=== PATIENT | female | born 1995 | race American Indian/Alaskan Native ===

== ENCOUNTER 2017-02-24 18:16 | Emergency (ER) | payer OTHER ==
[2017-02-24 19:09] LABS: Basophils % (Auto) 0.5 % (0.0-1.8); Eosinophils % (Auto) 1.2 % (0.0-4.3); Hematocrit 37.8 % (30.3-42.9); Hemoglobin 12.3 gm/dl (10.1-14.3); Mean Corpuscular HGB Conc 33 % (30-34); Mean Corpuscular Hemoglobin 27 pg (28-32); Mean Corpuscular Volume 84 fl (79-97); Platelet Count 246 K/mm3 (140-440); Red Blood Count 4.53 M/mm3 (3.65-5.03); Red Cell Distribution Width 13.2 % (13.2-15.2); White Blood Count 11.9 K/mm3 (4.5-11.0)
[2017-02-24 19:52] LABS: Anion Gap 18 mmol/L; BUN/Creatinine Ratio 20; Blood Urea Nitrogen 12 mg/dL (7-17); Calcium 9.4 mg/dL (8.4-10.2); Carbon Dioxide 25 mmol/L (22-30); Chloride 97.3 mmol/L (98-107); Glucose 88 mg/dL (65-100); Potassium 4.3 mmol/L (3.6-5.0); Sodium 136 mmol/L (137-145)
[2017-02-24 22:02] LABS: Bilirubin,Urine NEG (Negative); Blood,Urine NEG (Negative); Ketones,Urine 20 mg/dL (Negative); Leukocyte Esterase,Urine NEG (Negative); Mucus,Urine 3+ /HPF; Nitrite,Urine NEG (Negative); Protein,Urine <15 mg/dL mg/dL (Negative)
[2017-02-24] MEDS: ALUM-MAG HYDROX-SIMETH 200-200-20MG/5ML PO ONE (22:51)
[2017-02-24] MEDS: PEPCID PO ONE (22:51)
[2017-02-24] MEDS: ZOFRAN ODT PO ONE (22:51)
[2017-02-24 23:03] LABS: Alanine Aminotransferase 19 units/L (7-56); Albumin 4.3 g/dL (3.9-5); Albumin/Globulin Ratio 1.2 %; Alkaline Phosphatase 59 units/L (35-129); Amylase 102 units/L (27-131); Lipase 31 units/L (13-60); Total Protein 7.8 g/dL (6.3-8.2)
[2017-02-24 23:11] LABS: Bilirubin,Direct < 0.2 mg/dL (0-0.2); Bilirubin,Indirect 0.1 mg/dL
[2017-02-25] MEDS: PEPCID IV ONE (00:50)
[2017-02-25] MEDS: NACL 0.9% 1000 ML 1,000 ML IV ONE (00:50)
--- NOTE | 2017-02-25 00:54 | Ultrasound Report ---
FINAL REPORT EXAM: US OB < = 14 WEEKS FETUS HISTORY: pain COMPARISON: None available. TECHNIQUE: Several real-time grayscale and color Doppler images were obtained. Transabdominal and transvaginal exam. FINDINGS: Uterus measures 10.0 x 6.3 x 8.2 centimeters. The right ovary measures 3.0 x 2.2 x 2.6 centimeters. Left ovary measures 2.4 x 2.1 x 2.2 centimeters. Uterus is retroverted. Single live IUP. Estimated gestational age 6 weeks 1 day. Estimated delivery date October 20, 2017. heart rate 120 beats per minute. Yolk sac is present questionable small subchorionic hemorrhage measuring 6 x 4 millimeters. No adnexal masses are demonstrated. IMPRESSION: Single live IUP. Estimated gestational age 6 weeks 1 day. Estimated delivery date October 20, 2017. Possible tiny subchorionic hemorrhage.
--- NOTE | 2017-02-25 00:54 | Ultrasound Report ---
FINAL REPORT EXAM: US OB TRANSVAGINAL HISTORY: pain COMPARISON: None available. TECHNIQUE: Several real-time grayscale and color Doppler images were obtained. Transabdominal and transvaginal exam. FINDINGS: Uterus measures 10.0 x 6.3 x 8.2 centimeters. The right ovary measures 3.0 x 2.2 x 2.6 centimeters. Left ovary measures 2.4 x 2.1 x 2.2 centimeters. Uterus is retroverted. Single live IUP. Estimated gestational age 6 weeks 1 day. Estimated delivery date October 20, 2017. heart rate 120 beats per minute. Yolk sac is present questionable small subchorionic hemorrhage measuring 6 x 4 millimeters. No adnexal masses are demonstrated. IMPRESSION: Single live IUP. Estimated gestational age 6 weeks 1 day. Estimated delivery date October 20, 2017. Possible tiny subchorionic hemorrhage.
[2017-02-25 03:08] VITALS: BP 101/54
--- NOTE | 2017-02-25 03:48 | Emergency Department Report ---
ED HPI - General Chief complaint: Nausea/Vomiting/Diarrhea Stated complaint: N/V AND DIZZINESS/HEADACHE Time Seen by Provider: 02/24/17 22:11 Source: patient Mode of arrival: Ambulatory Limitations: No Limitations - History of Present Illness Initial comments: 21-year-old female past medical history none presents with complaint of pelvic cramps and nausea for 1 week. Patient states she had a few episodes of vomiting yesterday. Denies increased urinary frequency dysuria upper abdominal pain chest pain palpitations shortness of breath. States she had some headache after vomiting earlier today. Headache has since resolved but still feels nauseous. Vomited approximately 4 times. Patient's LMP was in December but is unsure if she may be . Requesting test. Patient denies any vaginal discharge and or vaginal bleeding currently. Onset/Timin -: week(s) Improves with: none Worsens with: none Associated symptoms: nausea/vomiting Vaginal bleeding: none :: Yes Number of weeks : 6 OB History - Current : no complications OB History - Previous Pregnancies: no complications Last menstrual period: 01/10/16 Pre- care: none - Related Data : 1 Para: 0 Previous Rx's Medication Instructions Recorded Last Taken Type Acetaminophen [Acetaminophen TAB] 500 mg PO Q6HR PRN #30 tablet 02/25/17 Unknown Rx Doxylamine Succinate/Vit B6 1 each PO QDAY PRN #30 tablet. 02/25/17 Unknown Rx [Kym Quiles 10-10 mg Tablet] Judie Root [Judie] 250 mg PO QDAY PRN #30 capsule 02/25/17 Unknown Rx Ondansetron [Zofran Odt] 4 mg PO Q8H PRN #12 tab.rapdis 02/25/17 Unknown Rx Pnv No.95/Ferrous Fum/Folic AC 1 each PO QDAY #1 bottle 02/25/17 Unknown Rx [ Formula Tablet] Allergies Allergy/AdvReac Type Severity Reaction Status Date / Time No Known Allergies Allergy Verified 02/24/17 18:43 ED Review of Systems ROS: Stated complaint: N/V AND DIZZINESS/HEADACHE Other details as noted in HPI Constitutional: denies: chills, fever Eyes: denies: eye pain, eye discharge, vision change ENT: denies: ear pain, throat pain Respiratory: denies: cough, shortness of breath, wheezing Cardiovascular: denies: chest pain, palpitations Endocrine: no symptoms reported Gastrointestinal: nausea. denies: abdominal pain, diarrhea Genitourinary: denies: urgency, dysuria, discharge Musculoskeletal: denies: back pain, joint swelling, arthralgia Skin: denies: rash, lesions Neurological: denies: headache, weakness, paresthesias Psychiatric: denies: anxiety, depression Hematological/Lymphatic: denies: easy bleeding, easy bruising ED Past Medical Hx - Past Medical History Previous Medical History?: No - Surgical History Past Surgical History?: No - Social History Smoking Status: Never Smoker Substance Use Type: None - Medications Home Medications: Home Medications Medication Instructions Recorded Confirmed Last Taken Type Acetaminophen [Acetaminophen TAB] 500 mg PO Q6HR PRN #30 tablet 02/25/17 Unknown Rx Doxylamine Succinate/Vit B6 1 each PO QDAY PRN #30 tablet.dr 02/25/17 Unknown Rx [Diclegis Dr 10-10 mg Tablet] Judie Root [Judie] 250 mg PO QDAY PRN #30 capsule 02/25/17 Unknown Rx Ondansetron [Zofran Odt] 4 mg PO Q8H PRN #12 tab.rapdis 02/25/17 Unknown Rx Pnv No.95/Ferrous Fum/Folic AC 1 each PO QDAY #1 bottle 02/25/17 Unknown Rx [ Formula Tablet] ED Physical Exam - General Limitations: No Limitations General appearance: alert, in no apparent distress - Head Head exam: Present: atraumatic, normocephalic - Eye Eye exam: Present: normal appearance, PERRL, EOMI - ENT ENT exam: Present: mucous membranes moist - Neck Neck exam: Present: normal inspection - Respiratory Respiratory exam: Present: normal lung sounds bilaterally. Absent: respiratory distress - Cardiovascular Cardiovascular Exam: Present: regular rate, normal rhythm. Absent: systolic murmur, diastolic murmur, rubs, gallop - GI/Abdominal GI/Abdominal exam: Present: soft, normal bowel sounds - Extremities Exam Extremities exam: Present: normal inspection - Back Exam Back exam: Present: normal inspection - Neurological Exam Neurological exam: Present: alert, oriented X3, CN II-XII intact, normal gait - Psychiatric Psychiatric exam: Present: normal affect, normal mood - Skin Skin exam: Present: warm, dry, intact, normal color. Absent: rash ED Course Vital Signs 11/26/17 11/27/17 18:40 03:07 Temperature 98.2 F 98.6 F Pulse Rate 100 H 76 Respiratory 16 16 Rate Blood Pressure 112/55 Blood Pressure 101/54 [Right] O2 Sat by Pulse 100 98 Oximetry ED Medical Decision Making - Lab Data Result diagrams: 02/24/17 18:48 02/24/17 18:48 - Medical Decision Making A/P: , nausea and vomiting 1-Rh+, ultrasound shows IUP, UA unremarkable 2-patient has no vaginal discharge and no reports of vaginal bleeding 3-Tylenol when necessary for crampy lower abdominal pain 4- emphasized the importance of follow-up with [facility] to the patient. vitamins, Judie supplment when necessary for nausea, Zofran when necessary for nausea. Labs unremarkable otherwise. [email or web address]_[email or web address] search=[email or web address]=[email or web address] Critical care attestation.: If time is entered above; I have spent that time in minutes in the direct care of this critically ill patient, excluding procedure time. ED Disposition Clinical Impression: Morning sickness Qualifiers: Weeks of gestation: less than 8 weeks Qualified Code(s): Z3A.01 - Less than 8 weeks gestation of Disposition: DC-01 TO HOME OR SELFCARE Is pt being admited?: No Does the pt Need Aspirin: No Condition: Stable Instructions: Morning Sickness (ED), (ED) Prescriptions: Acetaminophen [Acetaminophen TAB] 500 mg PO Q6HR PRN #30 tablet PRN Reason: Pain Doxylamine Succinate/Vit B6 [Kym Quiles 10-10 mg Tablet] 1 each PO QDAY PRN # 30 tablet.dr PRN Reason: Nausea Judie Root [Judie] 250 mg PO QDAY PRN #30 capsule PRN Reason: Nausea Ondansetron [Zofran Odt] 4 mg PO Q8H PRN #12 tab.rapdis PRN Reason: Nausea Pnv No.95/Ferrous Fum/Folic AC [ Formula Tablet] 1 each PO QDAY #1 bottle Referrals: [facility] [Provider Group] - 3-5 Days [facility] [Provider Group] - 3-5 Days [facility] [Provider Group] - 3-5 Days Time of Disposition: 03:45
== END 2017-02-25 04:00 | disposition home or self-care (01) ==
LOC: ED 18:16
DX: O26.891 Other specified pregnancy related conditions, first trimester (principal); R11.0 Nausea; R10.2 Pelvic and perineal pain; Z3A.01 Less than 8 weeks gestation of pregnancy
CPT/HCPCS: 36415; 76801; 76817; 84702; 86850; 86900; 86901; 96361; 96374; 99284; J7030; 80048; 80074; 81001; 81025; 82150; 83690; 85025; Q0162

== ENCOUNTER 2017-04-08 10:27 | Emergency (ER) | payer OTHER ==
[2017-04-08 11:51] VITALS: BP 102/59
[2017-04-08 12:30] LABS: Basophils % (Auto) 0.2 % (0.0-1.8); Eosinophils # (Auto) 0.1 K/mm3 (0.0-0.4); Eosinophils % (Auto) 0.8 % (0.0-4.3); Hemoglobin 12.5 gm/dl (10.1-14.3); Lymphocytes % (Auto) 26.1 % (13.4-35.0); Mean Corpuscular HGB Conc 33 % (30-34); Mean Corpuscular Hemoglobin 28 pg (28-32); Mean Corpuscular Volume 85 fl (79-97); Monocytes # (Auto) 0.9 K/mm3 (0.0-0.8); Platelet Count 226 K/mm3 (140-440); Red Blood Count 4.49 M/mm3 (3.65-5.03); Red Cell Distribution Width 13.3 % (13.2-15.2)
[2017-04-08 12:40] LABS: Alanine Aminotransferase 24 units/L (7-56); Albumin 4.1 g/dL (3.9-5); BUN/Creatinine Ratio 20; Blood Urea Nitrogen 8 mg/dL (7-17); Calcium 9.6 mg/dL (8.4-10.2); Hemolysis Index 2
[2017-04-08 16:25] LABS: Bilirubin,Urine NEG (Negative); Blood,Urine NEG (Negative); Color,Urine Yellow (Yellow); Mucus,Urine 3+ /HPF; Nitrite,Urine NEG (Negative); Protein,Urine <15 mg/dL mg/dL (Negative); Urobilinogen,Urine < 2.0 mg/dL (<2.0)
== END 2017-04-08 16:19 | disposition left against medical advice (07) ==
LOC: ED 10:27
DX: O21.9 Vomiting of pregnancy, unspecified (principal); O26.891 Other specified pregnancy related conditions, first trimester; Z3A.12 12 weeks gestation of pregnancy; R10.9 Unspecified abdominal pain; Z53.21 Procedure and treatment not carried out due to patient leaving prior to being seen by health care provider
CPT/HCPCS: 36415; 80053; 81001; 84702; 85025

== ENCOUNTER 2017-09-12 17:30 | Outpatient (CLI) | payer OTHER ==
[2017-09-12] MEDS ORDERED: LACTATED RINGERS 500 ML IV ONE (17:47)
[2017-09-12 18:14] VITALS: BP 113/59
[2017-09-12 18:42] LABS: Basophils % (Auto) 0.2 % (0.0-1.8); Eosinophils # (Auto) 0.1 K/mm3 (0.0-0.4); Eosinophils % (Auto) 0.8 % (0.0-4.3); Hematocrit 33.4 % (30.3-42.9); Lymphocytes # (Auto) 2.3 K/mm3 (1.2-5.4); Lymphocytes % (Auto) 27.2 % (13.4-35.0); Mean Corpuscular HGB Conc 33 % (30-34); Mean Corpuscular Hemoglobin 28 pg (28-32); Mean Corpuscular Volume 84 fl (79-97); Monocytes # (Auto) 0.8 K/mm3 (0.0-0.8); Monocytes % (Auto) 9.6 % (0.0-7.3); Platelet Count 164 K/mm3 (140-440); Red Blood Count 3.99 M/mm3 (3.65-5.03); Red Cell Distribution Width 13.3 % (13.2-15.2)
[2017-09-12 18:50] LABS: INR 0.96 (0.87-1.13)
[2017-09-12 18:51] LABS: Partial Thromboplastin Time 25.8 Sec. (24.2-36.6)
--- NOTE | 2017-09-12 21:11 | Ultrasound Report ---
FINAL REPORT EXAM: US OB LIMITED HISTORY: R/O ABRUPTION TECHNIQUE: Ultrasound obstetrical limited transabdominal PRIORS: None. FINDINGS: Placenta is left lateral. There is no evidence for placental abruption. There is a single intrauterine gestation present in cephalic presentation with heart rate of 133 beats per minute. IMPRESSION: No evidence for placental abruption
== END 2017-09-12 23:13 | disposition home or self-care (01) ==
LOC: TRG 17:30 → LD 17:32 → TRG 23:13
PROVIDERS: ATTEND Obstetrics & Gynecology
DX: O47.03 False labor before 37 completed weeks of gestation, third trimester (principal); Z3A.33 33 weeks gestation of pregnancy
CPT/HCPCS: 36415; 59025; 76815; 85025; 85384; 85610; 85730; 86850; 86900; 86901; 96360; 96361; J7120

== ENCOUNTER 2019-05-23 11:19 | Emergency (ER) | payer SELFPAY ==
--- NOTE | 2019-05-23 12:10 | Event Note ---
ED Screening Note ED Screening Note: lower abd pain that began a week ago states she is also having vaginal bleeding for a week LNMP March 31 states she had positive test but when she went to see her doctor there was not a gestational sac states she had an in December 2018 This initial assessment/diagnostic orders/clinical plan/treatment(s) is/are subject to change based on patients health status, clinical progression and re- assessment by fellow clinical providers in the ED. Further treatment and workup at subsequent clinical providers discretion. Patient/guardian urged not to elope from the ED as their condition may be serious if not clinically assessed and managed. Initial orders include: UA, hcg quant, CBC, ABO/rh
[2019-05-23 12:51] LABS: Basophils # (Auto) 0.1 K/mm3 (0.0-0.1); Basophils % (Auto) 0.8 % (0.0-1.8); Eosinophils # (Auto) 0.1 K/mm3 (0.0-0.4); Eosinophils % (Auto) 1.1 % (0.0-4.3); Hematocrit 38.6 % (30.3-42.9); Hemoglobin 12.8 gm/dl (10.1-14.3); Lymphocytes # (Auto) 2.7 K/mm3 (1.2-5.4); Lymphocytes % (Auto) 38.5 % (13.4-35.0); Mean Corpuscular HGB Conc 33 % (30-34); Mean Corpuscular Volume 84 fl (79-97); Monocytes # (Auto) 0.5 K/mm3 (0.0-0.8); Monocytes % (Auto) 7.6 % (0.0-7.3); Platelet Count 290 K/mm3 (140-440); Red Cell Distribution Width 12.9 % (13.2-15.2)
[2019-05-23 14:44] LABS: Bilirubin,Urine NEG (Negative); Blood,Urine LG (Negative); Color,Urine Yellow (Yellow); Mucus,Urine 3+ /HPF; Protein,Urine <15 mg/dL mg/dL (Negative); Urobilinogen,Urine < 2.0 mg/dL (<2.0)
--- NOTE | 2019-05-23 14:48 | Ultrasound Report ---
Pelvic ultrasound INDICATION: Positive test, vaginal bleeding TECHNIQUE: Transabdominal and endovaginal studies were performed. FINDINGS: Uterus measures 7.9 x 4.8 x 6.1 cm. Endometrial stripe measures 4 mm on endovaginal study. A tiny 2 mm cystic area is seen in the endometrium which is indeterminate. No definite intrauterine g estational sac is identified. No other focal uterine abnormalities are seen. Right ovary measures 3.2 cm in length and shows no abnormalities. Flow is noted. Left ovary measures 3.6 cm in length and shows a mildly complex cyst measuring 2.1 cm. Only minimal p eripheral blood flow is seen in this cyst area. These cysts shows a small focal echogenicity dependen tly. Left ovarian blood flow is noted however. No free fluid is seen. IMPRESSION: 1. No intrauterine can be verified. A tiny endometrial cystic area conceivably could be a v abby early gestational sac but is indeterminate. 2. Mildly complex left ovarian cyst. Ectopic cannot be fully excluded. Follow-up and clinic al correlation are needed. Signer Name: Dean Monk MD Signed: 05/23/2019 2:43 PM Workstation Name: [id number]
--- NOTE | 2019-05-23 15:13 | Emergency Department Report ---
ED Female HPI - General Chief complaint: Vaginal Bleeding Stated complaint: CRAMPS/V/N Time Seen by Provider: 05/23/19 12:07 Source: patient Mode of arrival: Ambulatory Limitations: No Limitations - History of Present Illness Complaint: vaginal bleeding - Related Data Previous Rx's Medication Instructions Recorded Last Taken Type Pnv No.95/Ferrous Fum/Folic AC 1 each PO QDAY #1 bottle 02/25/17 1 Day Ago Rx [ Formula Tablet] ~09/11/17 Acetaminophen/Codeine [Tylenol 1 tab PO Q6H #10 tab 05/23/19 Unknown Rx /Codeine # 3 tab] Allergies Allergy/AdvReac Type Severity Reaction Status Date / Time No Known Allergies Allergy Verified 04/08/17 11:50 ED Review of Systems ROS: Stated complaint: CRAMPS/V/N Other details as noted in HPI ED Past Medical Hx - Past Medical History Previous Medical History?: No Hx Hypertension: No Hx Diabetes: No Hx Deep Vein Thrombosis: No Hx Renal Disease: No Hx Sickle Cell Disease: No Hx Seizures: No Hx Asthma: No Hx HIV: No - Surgical History Past Surgical History?: No - Social History Smoking Status: Never Smoker Substance Use Type: None, Marijuana - Medications Home Medications: Home Medications Medication Instructions Recorded Confirmed Last Taken Type Pnv No.95/Ferrous Fum/Folic AC 1 each PO QDAY #1 bottle 02/25/17 09/12/17 1 Day Ago Rx [ Formula Tablet] ~09/11/17 Acetaminophen/Codeine [Tylenol 1 tab PO Q6H #10 tab 05/23/19 Unknown Rx /Codeine # 3 tab] ED Physical Exam - General Limitations: No Limitations ED Course Vital Signs 05/23/19 05/23/19 11:34 15:37 Temperature 98.8 F Pulse Rate 84 76 Respiratory 16 18 Rate Blood Pressure 123/79 Blood Pressure 118/74 [Right] O2 Sat by Pulse 100 99 Oximetry ED Medical Decision Making - Lab Data Result diagrams: 05/23/19 12:34 Laboratory Last Values WBC 7.1 K/mm3 (4.5-11.0) 05/23/19 12:34 RBC 4.60 M/mm3 (3.65-5.03) 05/23/19 12:34 Hgb 12.8 gm/dl (10.1-14.3) 05/23/19 12:34 Hct 38.6 % (30.3-42.9) 05/23/19 12:34 MCV 84 fl (79-97) 05/23/19 12:34 MCH 28 pg (28-32) 05/23/19 12:34 MCHC 33 % (30-34) 05/23/19 12:34 RDW 12.9 % (13.2-15.2) L 05/23/19 12:34 Plt Count 290 K/mm3 (140-440) 05/23/19 12:34 Lymph % (Auto) 38.5 % (13.4-35.0) H 05/23/19 12:34 [place] % (Auto) 7.6 % (0.0-7.3) H 05/23/19 12:34 Eos % (Auto) 1.1 % (0.0-4.3) 05/23/19 12:34 Baso % (Auto) 0.8 % (0.0-1.8) 05/23/19 12:34 Lymph # 2.7 K/mm3 (1.2-5.4) 05/23/19 12:34 [place] # 0.5 K/mm3 (0.0-0.8) 05/23/19 12:34 Eos # 0.1 K/mm3 (0.0-0.4) 05/23/19 12:34 Baso # 0.1 K/mm3 (0.0-0.1) 05/23/19 12:34 Seg Neutrophils % 52.0 % (40.0-70.0) 05/23/19 12:34 Seg Neutrophils # 3.7 K/mm3 (1.8-7.7) 05/23/19 12:34 HCG, Quant 97.20 mIU/mL (0-4) H 05/23/19 12:34 Urine Color Yellow (Yellow) 05/23/19 13:12 Urine Turbidity Slightly-cloudy (Clear) 05/23/19 13:12 Urine pH 7.0 (5.0-7.0) 05/23/19 13:12 Ur Specific [place] 1.026 (1.003-1.030) 05/23/19 13:12 Urine Protein <15 mg/dl mg/dL (Negative) 05/23/19 13:12 Urine Glucose (UA) Neg mg/dL (Negative) 05/23/19 13:12 Urine Ketones 20 mg/dL (Negative) 05/23/19 13:12 Urine Blood Lg (Negative) 05/23/19 13:12 Urine Nitrite Neg (Negative) 05/23/19 13:12 Urine Bilirubin Neg (Negative) 05/23/19 13:12 Urine Urobilinogen < 2.0 mg/dL (<2.0) 05/23/19 13:12 Ur Leukocyte Esterase Neg (Negative) 05/23/19 13:12 Urine WBC (Auto) 1.0 /HPF (0.0-6.0) 05/23/19 13:12 Urine RBC (Auto) 0.0 /HPF (0.0-6.0) 05/23/19 13:12 U Epithel Cells (Auto) 3.0 /HPF (0-13.0) 05/23/19 13:12 Urine Mucus 3+ /HPF 05/23/19 13:12 Blood Type O POSITIVE 05/23/19 12:34 - Radiology Data Radiology results: report reviewed, image reviewed Pelvic ultrasound INDICATION: Positive test, vaginal bleeding TECHNIQUE: Transabdominal and endovaginal studies were performed. FINDINGS: Uterus measures 7.9 x 4.8 x 6.1 cm. Endometrial stripe measures 4 mm on endovaginal study. A tiny 2 mm cystic area is seen in the endometrium which is indeterminate. No definite intrauterine gestational sac is identified. No other focal uterine abno rmalities are seen. Right ovary measures 3.2 cm in length and shows no abnormalities. Flow is noted. Left ovary measures 3.6 cm in length and shows a mildly complex cyst measuring 2.1 cm. Only minimal peripheral blood flow is seen in this cyst area. These cysts shows a small focal echogenicity dependently. Left ovarian blood flow is noted however. No free fluid is seen. IMPRESSION: 1. No intrauterine can be verified. A tiny endometrial cystic area conceivably could be a very early gestational sac but is indeterminate. 2. Mildly complex left ovarian cyst. Ectopic cannot be fully excluded. Follow-up and clinical correlation are needed. Signer Name: Dean Monk MD Signed: 05/23/2019 2:43 PM Workstation Name: [id number] Transcribed By: STACY Dictated By: Dean Monk MD Electronically Authenticated By: Dean Monk MD Signed Date/Time: 05/23/19 1443 - Medical Decision Making 29-year-old female presents to ED with threatened ED course: Pt received ultra sound, CBC, urinalysis, test and quantitative ED All labs within normal limits, quantitative elevated matching gestation age Patient states that bleeding is resolved when she is went into the bathroom to check Patient is followed by an [facility] out of [place] Dr. Newman Patient states she has no primary doctor [place] in 1 week Ultrasound shows twin gestation at 16 weeks with 166 , 17 6 bpm respectively. See reported above Vital signs normalized patient is in no acute distress. I discussed with the patient if follow-up with her [facility]ING EQUIPMENT OPERATOR. I discussed all labs and ultrasound findings with the patient. I discussed with the patient that he if bleeding worsens or new symptoms develop to return to ED immediately Critical care attestation.: If time is entered above; I have spent that time in minutes in the direct care of this critically ill patient, excluding procedure time. ED Disposition Clinical Impression: Spontaneous Disposition: DC-01 TO HOME OR SELFCARE Is pt being admited?: No Does the pt Need Aspirin: No Condition: Stable Instructions: Spontaneous Miscarriage (ED) Additional Instructions: Make sure to follow up with the [facility] HANDLING EQUIPMENT OPERATOR as discussed. Take all your medications as you've been prescribed. If you have any worsening symptoms or develop new symptoms please return to ED immediately. Prescriptions: Acetaminophen/Codeine [Tylenol /Codeine # 3 tab] 1 tab PO Q6H #10 tab Referrals: [facility] [Primary Care Provider] - 3-5 Days [facility] [Provider Group] - 3-5 Days [facility] [Provider Group] - 3-5 Days Forms: Accompanied Note, Work/School Release Form(ED) Time of Disposition: 15:16
[2019-05-23 15:38] VITALS: BP 118/74
== END 2019-05-23 15:37 | disposition home or self-care (01) ==
LOC: ED 11:19
DX: O03.9 Complete or unspecified spontaneous abortion without complication (principal); O99.322 Drug use complicating pregnancy, second trimester; F12.90 Cannabis use, unspecified, uncomplicated; Z79.899 Other long term (current) drug therapy; Z3A.16 16 weeks gestation of pregnancy
CPT/HCPCS: 36415; 76801; 76817; 81001; 84702; 85025; 86900; 86901